=== PATIENT | male | born 1935 | race Caucasian/White ===

== ENCOUNTER 2017-08-21 10:21 | Emergency (ER) | payer OTHER, MEDICAID ==
[~2017-08-21] VITALS: Ht 170.2 cm; Wt 83.9 kg
[2017-08-21] MEDS ORDERED: GLIPIZIDE 10 MG10 MG PO (10:37)
[2017-08-21] MEDS ORDERED: LISINOPRIL10 MG PO ×2 (10:37→10:38)
[2017-08-21] MEDS ORDERED: JANUVIA100 MG PO (10:38)
[2017-08-21] MEDS ORDERED: ST. JOSEPH ASPI81 MG PO (10:38)
[2017-08-21] MEDS ORDERED: ATORVASTATIN CA40 MG PO (10:38)
[2017-08-21] MEDS ORDERED: METFORMIN HCL500 MG PO (10:38)
[2017-08-21] MEDS ORDERED: TOPROL XL50 MG PO (10:39)
[2017-08-21 10:55] LABS: HEMATOCRIT 46.9 % (42.0-52.0); HEMOGLOBIN 15.8 gm/dL (14.0-18.0); MCH 31.2 pg (26.0-34.0); MCHC 33.6 g/dL (28.0-37.0); MCV 92.9 fL (80.0-100.0); MPV 7.1 fl. (7.2-11.1); NUCLEATED RBCS 0 /100WBC; PLATELET COUNT* 193 thou/uL (150-400); RBC 5.05 mil/uL (4.50-6.00); RDW-CV 12.6 % (10.5-14.5); WBC 12.2 thou/uL (4.0-11.0)
[2017-08-21 11:02] LABS: URINE BILIRUBIN NEGATIVE (Negative); URINE BLOOD 1+ (Negative); URINE CLARITY CLEAR; URINE COLOR YELLOW; URINE GLUCOSE-RANDOM 3+ (Negative); URINE KETONES NEGATIVE (Negative); URINE LEUKOCYTES-REFLEX NEGATIVE (Negative); URINE NITRITE-REFLEX NEGATIVE (Negative); URINE PROTEIN NEGATIVE (Negative); URINE SPECIFIC GRAVITY <= 1.005 (1.005-1.030); URINE UROBILINOGEN 0.2 E.U./dl (0.2-1.0)
[2017-08-21 11:03] LABS: CALCIUM 9.5 mg/dL (8.5-10.1); CREATININE 1.1 mg/dL (0.6-1.3); POTASSIUM 4.1 mmol/L (3.5-5.1)
[2017-08-21 11:07] LABS: ALBUMIN 4.4 g/dL (3.4-5.0); TOTAL BILIRUBIN 0.7 mg/dL (<0.1-1.0); TOTAL PROTEIN 8.2 g/dL (6.4-8.2)
[2017-08-21 11:10] LABS: BACTERIA-REFLEX 1-9 Few /HPF (None Seen); CASTS None Seen /LPF (None Seen); CRYSTALS None Seen /LPF (None Seen); MUCUS 0-3 Light strn/LPF (None Seen); SQUAMOUS 0-3 Few /LPF (0-3); URINE RBC 3-10 Few /HPF (0-2); URINE WBC-REFLEX 0-5 Rare /HPF (0-5)
[2017-08-21 11:46] LABS: ABSOLUTE LYMPHOCYTES 1.1 thou/uL (0.8-5.3); ABSOLUTE MONOCYTES 0.9 thou/uL (0.0-1.2); ABSOLUTE NEUTROPHILS 10.2 thou/uL (1.6-8.1)
[2017-08-21 11:47] LABS: PLATELET ESTIMATE ADEQUATE
[2017-08-21] MEDS ORDERED: BACTRIM DS TAB1 EACH PO (12:48)
[2017-08-21 13:04] VITALS: BP 102/73
[2018-04-18] MEDS ORDERED: PLAVIX 75 MG TA75 M1 PO (10:17)
[2018-04-18] MEDS ORDERED: IMDUR 30 MG TAB30 M1 PO (10:22)
[2018-04-18] MEDS ORDERED: JANUVIA100 MG PO (10:25)
[2018-04-18] MEDS ORDERED: ZANTAC 150MG T150 MG PO (10:26)
[2018-04-18] MEDS ORDERED: TOPROL XL100 MG PO (13:52)
[2018-04-18] MEDS ORDERED: IMDUR 60 MG TAB60 M1 PO (13:52)
== END 2017-08-21 13:06 | disposition home or self-care (01) ==
LOC: M.ERS 10:21
PROVIDERS: Physician Assistant
DX: R33.9 Retention of urine, unspecified (principal); N42.89 Other specified disorders of prostate; E11.9 Type 2 diabetes mellitus without complications; I10 Essential (primary) hypertension; E78.00 Pure hypercholesterolemia, unspecified

== ENCOUNTER 2017-08-24 09:30 | Emergency (ER) | payer OTHER, MEDICAID ==
[~2017-08-24] VITALS: Ht 160 cm; Wt 82.6 kg
[~2017-08-24 09:30] MED LIST: ATORVASTATIN CA40 MG PO; BACTRIM DS TAB1 EACH PO; GLIPIZIDE 10 MG10 MG PO; JANUVIA100 MG PO; LISINOPRIL10 MG PO; METFORMIN HCL500 MG PO; ST. JOSEPH ASPI81 MG PO; TOPROL XL50 MG PO
[2017-08-24 09:35] VITALS: BP 145/54
[2018-04-18] MEDS ORDERED: PLAVIX 75 MG TA75 M1 PO (10:17)
[2018-04-18] MEDS ORDERED: IMDUR 30 MG TAB30 M1 PO (10:22)
[2018-04-18] MEDS ORDERED: JANUVIA100 MG PO (10:25)
[2018-04-18] MEDS ORDERED: ZANTAC 150MG T150 MG PO (10:26)
[2018-04-18] MEDS ORDERED: TOPROL XL100 MG PO (13:52)
[2018-04-18] MEDS ORDERED: IMDUR 60 MG TAB60 M1 PO (13:52)
== END 2017-08-24 10:19 | disposition home or self-care (01) ==
LOC: M.ERS 09:30
DX: T83.098A Other mechanical complication of other urinary catheter, initial encounter (principal); E11.9 Type 2 diabetes mellitus without complications; I10 Essential (primary) hypertension; E78.00 Pure hypercholesterolemia, unspecified; Y84.9 Medical procedure, unspecified as the cause of abnormal reaction of the patient, or of later complication, without mention of misadventure at the time of the procedure; Y92.89 Other specified places as the place of occurrence of the external cause

== ENCOUNTER 2017-09-07 13:36 | Emergency (ER) | payer OTHER, MEDICAID ==
[~2017-09-07] VITALS: Ht 177.8 cm; Wt 68.0 kg
[2017-09-07 13:50] VITALS: BP 119/48
[2018-04-18] MEDS ORDERED: PLAVIX 75 MG TA75 M1 PO (10:17)
[2018-04-18] MEDS ORDERED: IMDUR 30 MG TAB30 M1 PO (10:22)
[2018-04-18] MEDS ORDERED: JANUVIA100 MG PO (10:25)
[2018-04-18] MEDS ORDERED: ZANTAC 150MG T150 MG PO (10:26)
[2018-04-18] MEDS ORDERED: TOPROL XL100 MG PO (13:52)
[2018-04-18] MEDS ORDERED: IMDUR 60 MG TAB60 M1 PO (13:52)
== END 2017-09-07 15:05 | disposition home or self-care (01) ==
LOC: M.ERS 13:36
DX: Z46.6 Encounter for fitting and adjustment of urinary device (principal); E11.9 Type 2 diabetes mellitus without complications; I10 Essential (primary) hypertension; E78.00 Pure hypercholesterolemia, unspecified

== ENCOUNTER 2017-11-28 11:46 | Outpatient (CLI) | payer OTHER, MEDICAID ==
[~2017-11-28] VITALS: Ht 157.5 cm; Wt 79.4 kg
[2017-11-28] VITALS (9 sets, daily range): BP systolic 96–129; BP diastolic 51–73
[2017-11-28 12:40] LABS: HEMATOCRIT 42.9 % (42.0-52.0); HEMOGLOBIN 14.7 gm/dL (14.0-18.0); MCH 31.6 pg (26.0-34.0); MCHC 34.3 g/dL (28.0-37.0); MCV 92.4 fL (80.0-100.0); MPV 6.7 fl. (7.2-11.1); RBC 4.65 mil/uL (4.50-6.00); RDW-CV 13.1 % (10.5-14.5); WBC 5.7 thou/uL (4.0-11.0)
[2017-11-28 12:50] LABS: ANION GAP 8 mmol/L (7-16); BUN 11 mg/dL (7-18); CALCIUM 9.1 mg/dL (8.5-10.1); CHLORIDE 99 mmol/L (98-107); CO2 30 mmol/L (21-32); CREATININE 0.8 mg/dL (0.6-1.3); GLUCOSE 181 mg/dL (70-99); POTASSIUM 3.8 mmol/L (3.5-5.1); SODIUM 137 mmol/L (136-145)
[2017-11-28 12:52] LABS: PROTIME 9.9 Seconds (9.20-11.50)
[2017-11-28 12:55] LABS: ALBUMIN 4.1 g/dL (3.4-5.0); ALKALINE PHOSPHATASE 64 U/L (46-116); CHOLESTEROL 106 mg/dL (<200); HDL CHOLESTEROL 55 mg/dL (>40); LDL CHOLESTEROL 28 mg/dL (<100); SGOT 15 U/L (15-37); SGPT 19 U/L (30-65); TC:HDL 1.9 Ratio (Not establshd); TOTAL BILIRUBIN 0.4 mg/dL (<0.1-1.0); TOTAL PROTEIN 7.9 g/dL (6.4-8.2); TRIGLYCERIDE 119 mg/dL (<150); VLDL 24 mg/dL (<40)
[2017-11-28] MEDS ORDERED: PROSCAR 5MG TABL5 MG PO (12:57)
[2017-11-28] MEDS ORDERED: VENTOLIN HFA 1818 GM INH (12:57)
[2017-11-28] MEDS ORDERED: FLOMAX0.4 MG PO (12:58)
[2017-11-28] MEDS ORDERED: GLUCOTROL5 MG PO (12:58)
[2017-11-28] MEDS ORDERED: COZAAR 25 MG TA25 M1 PO (12:58)
[2017-11-28] MEDS ORDERED: NITROGLYCERIN0.4 MG SUBLING (12:59)
[2017-11-28] MEDS ORDERED: MAGNESIUM CITR100 MG PO (13:01)
[2017-11-28 13:03] LABS: SERUM ASSESSMENT Clear
--- NOTE | 2017-11-28 16:38 | EKG ---
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: : 1935 Requested By: Jules Carvalho Order Number: [id number] Niyah MD: Jules Carvalho Measurements Intervals [place] Rate: 70 P: 22 [place]: 168 QRS: 46 QRSD: 83 T: 54 QT: 390 QTc: 421 Interpretive Statements Sinus rhythm Baseline wander in lead(s) I,III,aVL,aVF,V3,V6 No previous ECG available for comparison Electronically Signed On 11-28-2017 16:37:59 CDT by Jules Carvalho [email or web address] <ELECTRONICALLY SIGNED> By: Jules Carvalho MD, [facility] 11/28/17 1637 1258 1258 Jules Carvalho MD, [facility] /EPI
--- NOTE | 2017-12-01 11:03 | CARD ---
[address] [address] CARDIAC CATH REPORT Name: RON ABBASI Shila Room: [facility] HAO Kaye#: [id number] Admission: 11/28/17 Attend Phys: Jules Carvalho MD, Discharge: 11/28/17 Date of : 37 Report #: [id number] THIS REPORT FOR: //name// APPROVED REPORT Study performed: 11/28/2017 12:55:24 Patient Details Patient Status: Out-Patient Room #: The patient is a 82 year-old male Event Personnel Jules Carvalho Works Manager, Celine Jin RN RN, Jasmin Rosen RTR Monitor, Asa Allison (R) Scrub Procedures Performed Art Access - R radial artery Left Heart Cath w/LT VGram [id number] LHCLV Hemostasis with Hemoband Indication Dyspnea, Chest pain Risk Factors Hypercholesterolemia, Hypertension Procedure Narrative The patient was brought electively to the Cardiac Catheterization Laboratory and was prepped and draped in a sterile manner. The right wrist was infiltrated with 1% Lidocaine subcutaneous anesthesia. A Slender Glidesheath sheath was inserted into the right radial artery. Coronary angiography was performed using coronary diagnostic catheters. The right coronary system was accessed and visualized with a JR4 5fr catheter. The left coronary system was accessed and visualized with a JL 3.5 5fr catheter. The left ventricle was accessed and visualized with a PC: Angled Pig 5fr catheter. Left ventricular/Aortic Valve gradient assessed via catheter pullback. The patient tolerated the procedure well and there were no complications associated with the procedure. There was no hematoma. Intraoperative Conscious Sedation Sedation start time: 14:04 Case end Time: 14:34 Fentanyl 25 mcg Versed 1 [place] [address] CARDIAC CATH REPORT Name: ELROYRON Room: [facility]#: [id number] Admission: 11/28/17 Attend Phys: Jules Carvalho MD, Discharge: 11/28/17 Date of : 39 Report #: [id number] Fluoro Time: 10.1 minutes Dose: DAP 80203 cGycm2 783.65 mGy Contrast Type and Amount: Visipaque 130 ml Coronary Angiography The patient's coronary anatomy is right dominant. Diagnostic Cath Left Main 0% narrowing LAD 50 Percent mid vessel narrowing Circumflex 50 Percent proximal circumflex proximal narrowing with 40% narrowing of the midportion of the first marginal branch Right Coronary Dominant vessel with 40% proximal and 30% mid vessel narrowing Left Ventriculography The left ventricle is normal in size with normal contractility. The left ventricular ejection fraction is estimated to be 65%. Left ventricular wall motion abnormalities are not present. There is no mitral insufficiency. Hemodynamics The aortic pressure is 111/51 mmHg with a mean of 75 mmHg. The left ventricular pressure is 130/5 mmHg with a mean of mmHg. The left ventricular end diastolic pressure is 11 mmHg. Conclusion #1 moderate coronary artery disease characterized by the following: A 50% mid LAD narrowing B 50% proximal circumflex narrowing with 40% narrowing of the midportion of the first marginal branch C large dominant right coronary artery with 40% proximal and 30% mid vessel narrowing #2 normal left ventricular systolic function, estimate ejection fraction being 65% #3 normal left-sided hemodynamic study. Recommendations Cardiac Risk Reduction Program Aggressive [place] [address] CARDIAC CATH REPORT Name: RON ABBASI [id number] Admission: 11/28/17 Attend Phys: Jules Carvalho MD, Discharge: 11/28/17 Date of : 37 Report #: [id number] Diagnostic Cath Approved by: Jules Carvalho MD Date/Time: 12/01/17 1102 hrs. <ELECTRONICALLY SIGNED> By: Jules Carvalho MD, FACC 12/01/171102 02 02Jules Carvalho MD, FACC /INF
[2018-04-18] MEDS ORDERED: PLAVIX 75 MG TA75 M1 PO (10:17)
[2018-04-18] MEDS ORDERED: IMDUR 30 MG TAB30 M1 PO (10:22)
[2018-04-18] MEDS ORDERED: JANUVIA100 MG PO (10:25)
[2018-04-18] MEDS ORDERED: ZANTAC 150MG T150 MG PO (10:26)
[2018-04-18] MEDS ORDERED: IMDUR 60 MG TAB60 M1 PO (13:52)
[2018-04-18] MEDS ORDERED: TOPROL XL100 MG PO (13:52)
== END 2017-11-28 16:37 | disposition home or self-care (01) ==
LOC: M.CL 11:46 → M.TBA-CV 11:46 → M.CL 13:00 → M.TBA-CV 14:51 → M.CL 16:37
PROVIDERS: Internal Medicine
DX: I25.10 Atherosclerotic heart disease of native coronary artery without angina pectoris (principal); I10 Essential (primary) hypertension; E78.00 Pure hypercholesterolemia, unspecified; E11.9 Type 2 diabetes mellitus without complications; Z87.448 Personal history of other diseases of urinary system; Z79.82 Long term (current) use of aspirin; Z79.899 Other long term (current) drug therapy

== ENCOUNTER 2018-01-09 08:45 | Emergency (ER) | payer OTHER, MEDICAID ==
[~2018-01-09] VITALS: Ht 157.5 cm; Wt 81.7 kg
[~2018-01-09 08:45] MED LIST changes: +COZAAR 25 MG TA25 M1 PO; +FLOMAX0.4 MG PO; +GLUCOTROL5 MG PO; +MAGNESIUM CITR100 MG PO; +NITROGLYCERIN0.4 MG SUBLING; +PROSCAR 5MG TABL5 MG PO; +VENTOLIN HFA 1818 GM INH
[2018-01-09 09:08] LABS: URINE BILIRUBIN NEGATIVE (Negative); URINE BLOOD 2+ (Negative); URINE CLARITY CLEAR; URINE COLOR YELLOW; URINE GLUCOSE-RANDOM TRACE (Negative); URINE KETONES NEGATIVE (Negative); URINE LEUKOCYTES-REFLEX NEGATIVE (Negative); URINE NITRITE-REFLEX NEGATIVE (Negative); URINE PROTEIN NEGATIVE (Negative); URINE SPECIFIC GRAVITY <= 1.005 (1.005-1.030); URINE UROBILINOGEN 0.2 E.U./dl (0.2-1.0)
[2018-01-09 09:15] LABS: BACTERIA-REFLEX 1-9 Few /HPF (None Seen); CASTS None Seen /LPF (None Seen); CRYSTALS None Seen /LPF (None Seen); MUCUS 0-3 Light strn/LPF (None Seen); SQUAMOUS 0-3 Few /LPF (0-3); URINE RBC 3-10 Few /HPF (0-2); URINE WBC-REFLEX 0-5 Rare /HPF (0-5)
[2018-01-09 10:02] LABS: CALCIUM 9.8 mg/dL (8.5-10.1); CREATININE 0.8 mg/dL (0.6-1.3)
[2018-01-09] MEDS ORDERED: KEFLEX500 M1 PO (11:17)
[2018-01-09 11:32] VITALS: BP 125/58
[2018-04-18] MEDS ORDERED: PLAVIX 75 MG TA75 M1 PO (10:17)
[2018-04-18] MEDS ORDERED: IMDUR 30 MG TAB30 M1 PO (10:22)
[2018-04-18] MEDS ORDERED: JANUVIA100 MG PO (10:25)
[2018-04-18] MEDS ORDERED: ZANTAC 150MG T150 MG PO (10:26)
[2018-04-18] MEDS ORDERED: IMDUR 60 MG TAB60 M1 PO (13:52)
[2018-04-18] MEDS ORDERED: TOPROL XL100 MG PO (13:52)
== END 2018-01-09 11:34 | disposition home or self-care (01) ==
LOC: M.ERS 08:45
PROVIDERS: Emergency Medicine Emergency Medical Services
DX: R33.9 Retention of urine, unspecified (principal); E11.9 Type 2 diabetes mellitus without complications; I10 Essential (primary) hypertension; E78.00 Pure hypercholesterolemia, unspecified

== ENCOUNTER 2018-02-12 07:42 | Observation (INO) | payer OTHER, MEDICAID ==
[2018-02-12] VITALS (14 sets, daily range): BP systolic 124–148; BP diastolic 55–71
[~2018-02-12] VITALS: Ht 162.6 cm; Wt 79.4 kg
--- NOTE | ~2018-02-12 | EKG ---
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
--- NOTE | ~2018-02-12 | H ---
[address] [address] HISTORY AND PHYSICAL Name: RON ABBASI Room: [address] [place] Kaye#: [id number] Admission: 02/12/18 Attend Phys: Jlues Carvalho MD, Discharge: 02/13/18 Date of : 37 Report #: [id number] THIS REPORT FOR: //name// Please refer to the History and Physical performed in the physician's office. By: [facility]0Medical Records Staff MELQUIADES /EDNA
[~2018-02-12 07:42] MED LIST changes: +KEFLEX500 M1 PO
[2018-02-12 08:20] LABS: HEMATOCRIT 40.7 % (42.0-52.0); HEMOGLOBIN 13.6 gm/dL (14.0-18.0); MCH 31.1 pg (26.0-34.0); MCHC 33.3 g/dL (28.0-37.0); MCV 93.4 fL (80.0-100.0); MPV 6.9 fl. (7.2-11.1); RBC 4.36 mil/uL (4.50-6.00); RDW-CV 12.8 % (10.5-14.5); WBC 5.2 thou/uL (4.0-11.0)
[2018-02-12 08:31] LABS: APTT 25.4 Seconds (25.0-31.3); INR 1.1; PROTIME 10.5 Seconds (9.20-11.50)
[2018-02-12 08:36] LABS: ANION GAP 6 mmol/L (7-16); BUN 10 mg/dL (7-18); CALCIUM 8.4 mg/dL (8.5-10.1); CHLORIDE 101 mmol/L (98-107); CO2 28 mmol/L (21-32); CREATININE 0.9 mg/dL (0.6-1.3); GLUCOSE 234 mg/dL (70-99); POTASSIUM 3.8 mmol/L (3.5-5.1); SODIUM 135 mmol/L (136-145)
[2018-02-12 08:42] LABS: ALBUMIN 3.6 g/dL (3.4-5.0); ALKALINE PHOSPHATASE 55 U/L (46-116); SGOT 14 U/L (15-37); SGPT 20 U/L (30-65); TOTAL BILIRUBIN 0.7 mg/dL (<0.1-1.0); TOTAL PROTEIN 7.1 g/dL (6.4-8.2)
[2018-02-12 09:48] LABS: CHOLESTEROL 108 mg/dL (<200); HDL CHOLESTEROL 55 mg/dL (>40); LDL CHOLESTEROL 31 mg/dL (<100); TRIGLYCERIDE 114 mg/dL (<150); VLDL 23 mg/dL (<40)
[2018-02-12 09:51] LABS: SERUM ASSESSMENT Clear
--- NOTE | 2018-02-12 17:30 | EKG ---
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
[2018-02-13] VITALS: BP 137/84
[2018-02-13 04:43] VITALS: BP 123/81
[2018-02-13 05:47] LABS: HEMATOCRIT 36.7 % (42.0-52.0); HEMOGLOBIN 12.4 gm/dL (14.0-18.0); MCH 31.9 pg (26.0-34.0); MCHC 33.8 g/dL (28.0-37.0); MCV 94.3 fL (80.0-100.0); MPV 7.4 fl. (7.2-11.1); RBC 3.9 mil/uL (4.50-6.00); RDW-CV 12.9 % (10.5-14.5)
[2018-02-13 06:07] LABS: ALBUMIN 3.3 g/dL (3.4-5.0); ALKALINE PHOSPHATASE 49 U/L (46-116); BUN 9 mg/dL (7-18); CALCIUM 8.1 mg/dL (8.5-10.1); CHLORIDE 105 mmol/L (98-107); CREATININE 0.7 mg/dL (0.6-1.3); GLUCOSE 219 mg/dL (70-99); POTASSIUM 4.2 mmol/L (3.5-5.1); SGOT 15 U/L (15-37); SGPT 16 U/L (30-65); SODIUM 139 mmol/L (136-145); TOTAL BILIRUBIN 0.8 mg/dL (<0.1-1.0); TOTAL PROTEIN 6.1 g/dL (6.4-8.2); TROPONIN-I LEVEL <0.06 ng/mL (<0.06)
[2018-02-13 06:22] LABS: ANION GAP 12 mmol/L (7-16); CO2 22 mmol/L (21-32)
[2018-02-13 07:30] VITALS: BP 133/63
[2018-02-13 10:00] VITALS: BP 134/71
[2018-02-13] MEDS ORDERED: BRILINTA90 MG PO (12:34)
--- NOTE | 2018-02-13 16:11 | D ---
[address] [address] DISCHARGE SUMMARY Name: GISSELLE ABBASIZHAO Fuchs Room: [address] [place] Kaye#: [id number] Admission: 02/12/18 Attend Phys: Jules Carvalho MD, Discharge: 02/13/18 Date of : 37 Report #: [id number] THIS REPORT FOR: //name// CC: Jules Carvalho Kavya Thompson DATE OF SERVICE: 02/13/2018 FINAL DISCHARGE DIAGNOSES: 1. Coronary artery disease. 2. Status post stenting of the mid left anterior descending and angioplasty of a prominent diagonal with atherectomy of the mid left anterior descending prior to stenting. 3. Hypertension. 4. Hyperlipoproteinemia. 5. Aortic stenosis. 6. History of urinary retention. PROCEDURES: 02/12/2018-left heart catheterization, selective coronary arteriography, and percutaneous coronary intervention with deployment of drug-eluting stent in the mid LAD after atherectomy with angioplasty of a prominent diagonal branch. The patient is a pleasant 82-year-old male with recurrent episodes of chest discomfort compatible with angina following a pattern of increased frequency and severity. He underwent catheterization 3 months ago and a moderately severe mid LAD lesion was noted and was treated medically. He continued to have angina despite medical therapy unless re-catheterization was performed on 02/12/2018, which revealed 80-90% mid LAD stenosis with involvement of the takeoff of a prominent diagonal. I performed atherectomy followed by stenting of the mid LAD with angioplasty of the takeoff of the first diagonal with 0% residual LAD narrowing and 10% residual diagonal narrowing and MICAELA 3 flow to both distal circulations. The patient did well post-procedurally and ambulated in the hallways without difficulty with good hemostasis at the right femoral site of catheterization. Laboratory on 02/13, revealed sodium 139, potassium 4.2, BUN 9, creatinine 0.7. Hemoglobin 12.4, white blood cell count 6000, and platelets 162,000. Troponin less than 0.06. The patient was discharged to home on the following medications: Aspirin 81 mg daily, atorvastatin 40 mg daily, cephalexin 500 mg q.i.d., finasteride 5 mg daily, glipizide 10 mg daily and 5 mg before breakfast, losartan 25 mg daily, magnesium 250 mg daily, metformin 500 mg b.i.d. to be resumed on 02/15/2018, metoprolol succinate 25 mg daily, tamsulosin 0.4 mg daily, ticagrelor 90 [place] [address] DISCHARGE SUMMARY Name: RON ABBASI Room: [address] Clay MMarcosR.#: [id number] Admission: 02/12/18 Attend Phys: Jules Carvalho MD, Discharge: 02/13/18 Date of : 37 Report #: [id number] b.i.d., albuterol 2 puffs q.6 hours p.r.n. and p.r.n. sublingual nitroglycerin. The patient is scheduled to return to see me in the office on 02/20/2018, at 1420 hours. Thus, the patient is discharged to home in stable condition on the aforementioned medications with followup as iterated above. <ELECTRONICALLY SIGNED> By: Jules Carvalho MD, FACC 02/13/18 1611 1140 1534Jules Carvalho MD, FAC /nt
--- NOTE | 2018-02-13 17:37 | EKG ---
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
--- NOTE | 2018-02-21 17:07 | CARD ---
[address] [address] CARDIAC CATH REPORT Name: RON ABBASI Shila Room: [address] [place] Kaye#: [id number] Admission: 02/12/18 Attend Phys: Jules Carvalho MD, Discharge: 02/13/18 Date of : 37 Report #: [id number] THIS REPORT FOR: //name// APPROVED REPORT Study performed: 02/12/2018 08:06:33 Patient Details Patient Status: Out-Patient Room #: 208 The patient is a 82 year-old male Event Personnel Jules Carvalho Debt Counselor, Reyna Hardwick RN Furniture Builder, Mika Hunt Haley, Jessica RTR Monitor, Chyna Garland Monitor Procedures Performed Art Access - R femoral artery* Left Heart Cath w/or w/o Coronaries [id number] [facility] JAVI Place w/wo Plasty Single LAD [id number] PTCA Single Vessel DIAG [id number] PCISINGLE , Selective Right and Left Coronary Angiography Indication Unstable angina Risk Factors Hypercholesterolemia, Hypertension Procedure Narrative The patient was brought electively to the Cardiac Catheterization Laboratory and was prepped and draped in a sterile manner. The right femoral was infiltrated with 2% Lidocaine subcutaneous anesthesia. A [place] 6 FR sheath was inserted into the right femoral artery. Coronary angiography was performed using coronary diagnostic catheters. The right coronary system was accessed and visualized with a Diagnostic 6fr JR 4 catheter. The left coronary system was accessed and visualized with a Diagnostic 6fr JL 4 catheter. The left ventricle was accessed and visualized with a Diagnostic 6fr Straight Pigtail catheter. Left ventricular/Aortic Valve gradient assessed via catheter pullback. Pre-demployment femoral angiogram was performed . Closure device was deployed with a 6 Fr Angioseal STS 6Fr. The patient tolerated the procedure well and there were no complications associated with the procedure. There was no hematoma. Fluoro Time: 11.9 [place] [address] CARDIAC CATH REPORT Name: RON ABBASI Room: [address] M.R.#: [id number] Admission: 02/12/18 Attend Phys: Jules Carvalho MD, Discharge: 02/13/18 Date of : 37 Report #: [id number] Dose: DAP 1294 cGycm2 69.8 mGy Contrast Type and Amount: Visipaque 285 ml Coronary Angiography The patient's coronary anatomy is right dominant. Diagnostic Cath Left Main 0% narrowing LAD 30% proximal narrowing with 90% mid vessel narrowing involving the takeoff of a prominent diagonal branch Circumflex 40% proximal to 60% mid vessel narrowing Right Coronary Large dominant vessel with 50% proximal stenosis Left Ventriculography Left Ventriculography was not performed. IVUS Intravascular Ultrasound was performed on the mid left anterior descending artery segment vessel. IVUS Findings AngioSculpt PTCA 2.0X10mm Hemodynamics The aortic pressure is 121/56 mmHg with a mean of mmHg. The left ventricular pressure is 153/3 mmHg with a mean of mmHg. The left ventricular end diastolic pressure is 9 mmHg. Pullback from the left ventricle to the aorta revealed no gradient across the aortic valve. PCI Technique Lesion Anticoagulation was achieved with Angiomax. Percutaneous coronary intervention was performed on the mid left anterior descending artery segment. The lesion stenosis prior to intervention was 90% with MICAELA 3 flow. A 6FR XB 3.0 100CM Guide Catheter was used to engage the LCA ostium. A IG: ProwaterFlex 180CM Interventional Guidewire was used to cross the lesion. BALLOON DILATION A Balloon catheter AngioSculpt PTCA 2.0X10mm was inserted and inflated up to 10atm for 13seconds. Additional Inflation: 10.00atm for 10seconds. Additional Inflation: 17.00atm for 16seconds. 17 SOFIYA X 11 SECONDS 18 SOFIYA X 10 SECONDS 19 SOFIYA X 14 SECONDS STENT DEPLOYMENT A drug-eluting stent Xience Alpine RX 2.25X08 [place] [address] CARDIAC CATH REPORT Name: RON ABBASI Room: [address] M.RMarcos#: [id number] Admission: 02/12/18 Attend Phys: Jules Carvalho MD, Discharge: 02/13/18 Date of : 39 Report #: [id number] inflated up to 8atm for 10seconds. Final angiography reveals 0 % stenosis with MICAELA 3 flow. PCI Technique Lesion Percutaneous coronary intervention was performed on the mid left anterior descending artery segment. BALLOON DILATION A Balloon catheter AngioSculpt PTCA 2.0X10mm was inserted and inflated up to 10.00atm for 12seconds. Additional Inflation: 10.00atm for 10seconds. STENT DEPLOYMENT A drug-eluting stent Xience Alpine RX 2.25X08 was inserted and inflated up to 6.00atm for 7seconds. Additional Inflation: 7.00atm for 10seconds. PCI Technique Lesion 2 Percutaneous Coronary Intervention was performed on the first diagnonal branch segment. The lesion stenosis prior to intervention was 75% with MICAELA 3 flow. Balloon Dilation A Balloon catheter Trek RX 2.25 X 8 was inserted and inflated up to 12.00atm for 12seconds. Additional Inflation: 14.00atm for 10seconds. Final angiography reveals 10 % stenosis with MICAELA 3 flow. Conclusion #1 significant coronary artery disease characterized by the following: A 30% proximal with 90% mid vessel stenosis involving the takeoff of prominent diagonal branch B 40% proximal circumflex narrowing with 60% mid vessel narrowing C large dominant right coronary artery with 50% proximal narrowing #2 normal left-sided hemodynamics study #3 successful percutaneous [place] [address] CARDIAC CATH REPORT Name: RON ABBASI Room: [address] [place] Kaye#: [id number] Admission: 02/12/18 Attend Phys: Jules Carvalho MD, Discharge: 02/13/18 Date of : 39 Report #: [id number] atherotomy/atherectomy followed by stenting of the mid left anterior descending coronary artery with 0% residual narrowing and MICAELA-3 flow the distal vessel #4 successful percutaneous transluminal coronary angioplasty at the site of 75% first diagonal narrowing with 10% residual narrowing Recommendations Cardiac Risk Reduction Program Aggressive Medical Therapy Medications Administered Aspirin (any) Ticagrelor Diagnostic Cath Approved by: Jules Carvalho MD Date/Time: 02/21/2018 17:06:18 <ELECTRONICALLY SIGNED> By: Jules Carvalho MD, [facility] 02/21/18 1707 1707 1707Jules Carvalho MD, FAC /INF
[2018-04-18] MEDS ORDERED: PLAVIX 75 MG TA75 M1 PO (10:17)
[2018-04-18] MEDS ORDERED: IMDUR 30 MG TAB30 M1 PO (10:22)
[2018-04-18] MEDS ORDERED: JANUVIA100 MG PO (10:25)
[2018-04-18] MEDS ORDERED: ZANTAC 150MG T150 MG PO (10:26)
[2018-04-18] MEDS ORDERED: IMDUR 60 MG TAB60 M1 PO (13:52)
[2018-04-18] MEDS ORDERED: TOPROL XL100 MG PO (13:52)
== END 2018-02-13 13:46 | disposition home or self-care (01) ==
LOC: M.CL 07:42 → M.TBA-CV 10:40 → M.2W 11:15
PROVIDERS: ADMIT Internal Medicine
DX: I25.10 Atherosclerotic heart disease of native coronary artery without angina pectoris (principal); I10 Essential (primary) hypertension; E78.5 Hyperlipidemia, unspecified; I35.0 Nonrheumatic aortic (valve) stenosis

== ENCOUNTER 2018-02-26 11:24 | Emergency (ER) | payer OTHER, MEDICAID ==
[~2018-02-26] VITALS: Ht 162.6 cm; Wt 2.7 kg
[~2018-02-26 11:24] MED LIST changes: +BRILINTA90 MG PO
[2018-02-26 11:53] LABS: ABSOLUTE BASOPHILS 0.1 thou/uL (0.0-0.2); ABSOLUTE LYMPHOCYTES 0.9 thou/uL (0.8-5.3); ABSOLUTE MONOCYTES 0.4 thou/uL (0.0-1.2); ABSOLUTE NEUTROPHILS 4.2 thou/uL (1.6-8.1); BASOPHILS 1.2 %; EOSINOPHILS 0.9 %; HEMATOCRIT 36.9 % (42.0-52.0); HEMOGLOBIN 12.5 gm/dL (14.0-18.0); LYMPHOCYTES 16.1 %; MCH 31.4 pg (26.0-34.0); MCHC 33.9 g/dL (28.0-37.0); MCV 92.6 fL (80.0-100.0); MONOCYTES 7.9 %; MPV 6.6 fl. (7.2-11.1); NUCLEATED RBCS 0 /100WBC; PLATELET COUNT* 207 thou/uL (150-400); POLYS 73.9 %; RBC 3.98 mil/uL (4.50-6.00); WBC 5.7 thou/uL (4.0-11.0)
[2018-02-26 11:58] LABS: ANION GAP 13 mmol/L (7-16); BUN 10 mg/dL (7-18); CALCIUM 8.1 mg/dL (8.5-10.1); CHLORIDE 101 mmol/L (98-107); CO2 25 mmol/L (21-32); CREATININE 0.9 mg/dL (0.6-1.3); GLUCOSE 172 mg/dL (70-99); SODIUM 139 mmol/L (136-145)
[2018-02-26 12:06] LABS: PROTIME 10.2 Seconds (9.20-11.50)
[2018-02-26 12:09] LABS: ALBUMIN 3.5 g/dL (3.4-5.0); ALKALINE PHOSPHATASE 50 U/L (46-116); LIPASE 135 U/L (73-393); NT-PRO BRAIN NAT PEPTIDE 76 pg/mL (<300); SGOT 17 U/L (15-37); SGPT 20 U/L (30-65); TOTAL BILIRUBIN 0.6 mg/dL (<0.1-1.0); TOTAL PROTEIN 6.8 g/dL (6.4-8.2); TROPONIN-I LEVEL <0.06 ng/mL (<0.06)
[2018-02-26 13:10] VITALS: BP 118/55
--- NOTE | 2018-02-26 14:40 | EKG ---
[place] [address] ELECTROCARDIOGRAM REPORT Name: GREGORIO ABBASIROWAN Fuchs Room: [facility]#: [id number] Admission: 02/26/18 Attend Phys: Discharge: 02/26/18 Date of : 39 Report #: [id number] THIS REPORT FOR: //name// [facility] ED Test Date: 2018-02-26 Test Time: 11:30:03 Pat Name: RON ABBASI Department: Room: Gender: Business Control Manager: Gurpreet DOZIER : 1935 Requested By: Clayton Carrillo Order Number: [id number] MD: Antoine Famrer Measurements Intervals [place] Rate: 80 P: 16 [place]: 171 QRS: 37 QRSD: 86 T: 53 QT: 362 QTc: 418 Interpretive Statements Sinus rhythm Compared to ECG 02/13/2018 09:13:34 No significant changes Electronically Signed On 02-26-2018 14:40:50 CDT by Antoine Farmer [email or web address] <ELECTRONICALLY SIGNED> By: Antoine Farmer MD, [facility] 02/26/18 1440 1130 1130 Antoine Farmer MD, FAC /EPI
[2018-04-18] MEDS ORDERED: PLAVIX 75 MG TA75 M1 PO (10:17)
[2018-04-18] MEDS ORDERED: IMDUR 30 MG TAB30 M1 PO (10:22)
[2018-04-18] MEDS ORDERED: JANUVIA100 MG PO (10:25)
[2018-04-18] MEDS ORDERED: ZANTAC 150MG T150 MG PO (10:26)
[2018-04-18] MEDS ORDERED: TOPROL XL100 MG PO (13:52)
[2018-04-18] MEDS ORDERED: IMDUR 60 MG TAB60 M1 PO (13:52)
== END 2018-02-26 13:11 | disposition home or self-care (01) ==
LOC: M.ERS 11:24
PROVIDERS: Emergency Medicine
DX: R07.89 Other chest pain (principal); R30.0 Dysuria

== ENCOUNTER → 2018-03-19 | Outpatient (CLI) | payer OTHER, MEDICAID ==
[~2018-03-19] MED LIST changes: +AMOXICILLIN 50500 M1 PO; +AZITHROMYCIN 2250 MG PO; +BACTRIM DS TAB1 EAC1 PO; +IMDUR 30 MG TAB30 M1 PO; +IMDUR 60 MG TAB60 M1 PO; +NORCO 5-325 TA1 EACH PO; +PLAVIX 75 MG TA75 M1 PO; +RANEXA500 MG PO; +TOPROL XL100 MG PO; +ZANTAC 150MG T150 MG PO
--- NOTE | 2018-03-19 15:23 | 2DMMODE ---
[place] [address] 2 D/M-MODE ECHOCARDIOGRAM Name: RON ABBASI [id number] Admission: 03/19/18 Attend Phys: Nanda Gusman NP [place] Discharge: Date of : 39 Date of Service: 03/19/18 1523 Report #: [id number] THIS REPORT FOR: //name// APPROVED REPORT Study performed: 03/19/2018 14:38:49 EXAM: Comprehensive 2D, Doppler, and color-flow Echocardiogram Patient Location: Out-Patient Status: routine BSA: 1.85 HR: 77 bpm BP: 102/80 mmHg Other Information Study Quality: Good Indications Dyspnea 2D Dimensions LVEF(%): 76.05 (>50%) IVSd: 11.35 (7-11mm) LVOT Diam: 20.41 (18-24mm) LVDd: 40.39 mm PWd: 10.15 (7-11mm) Ascending Ao: 26.41 (22-36mm) LVDs: 22.50 (25-40mm) Aortic Root: 26.23 mm Fish's LVEF: 76.05 % Volumes Left Atrial Volume (Systole) LA ESV Index: 13.70 mL/m2 Aortic Valve AoV Peak Tom.: 3.41 m/s AO Peak Gr.: 46.38 mmHg LVOT Max P.03 mmHg AO Mean Gr.: 28.62 mmHg LVOT Mean P.08 mmHg LVOT Max V: 0.71 m/s AO V2 VTI: 78.13 cm LVOT Mean V: 0.48 m/s REBEKAH (VTI): 0.73 cm2 LVOT V1 VTI: 17.48 cm Mitral Valve E/A Ratio: 0.93 MV Decel. Time: 238.27 [place] [address] 2 D/M-MODE ECHOCARDIOGRAM Name: RON ABBASI Room: [facility]#: [id number] Admission: 03/19/18 Attend Phys: Nanda Gusman NP [place] Discharge: Date of : 39 Date of Service: 03/19/18 1523 Report #: [id number] MV E Max Tom.: 0.67 m/s MV PHT: 69.10 ms MVA (PHT): 3.18 cm2 TDI E/Lateral E': 8.38 E/Medial E': 8.38 Medial E' Tom.: 0.08 m/s Lateral E' Tom.: 0.08 m/s Pulmonary Valve PV Peak Tom.: 1.32 m/s PV Peak Gr.: 6.94 mmHg Left Ventricle The left ventricle is normal size. There is normal LV segmental wall motion. Mild concentric left ventricular hypertrophy. Left ventricular systolic function is normal. LVEF is >70%. Transmitral Doppler flow pattern suggests impaired LV relaxation. Right Ventricle The right ventricle is normal size. The right ventricular systolic function is normal. Atria The left atrium size is normal. The right atrium size is normal. Aortic Valve Aortic valve is calcified. Trace aortic regurgitation. Severe aortic stenosis. Mitral Valve The mitral valve is normal in structure. There is no mitral valve regurgitation noted. No evidence of mitral valve stenosis. Tricuspid Valve The tricuspid valve is normal in structure. There is no tricuspid valve regurgitation noted. Pulmonic Valve The pulmonary valve is normal in structure. There is no pulmonic valvular regurgitation. Great Vessels The aortic root is normal in size. IVC is normal in size and collapses with >50% [place] [address] 2 D/M-MODE ECHOCARDIOGRAM Name: RON ABBASI Room: [facility]#: [id number] Admission: 03/19/18 Attend Phys: Nanda Gusman NP [place] Discharge: Date of : 39 Date of Service: 03/19/18 1523 Report #: [id number] Pericardium There is no pericardial effusion. <Conclusion> The left ventricle is normal size. Mild concentric left ventricular hypertrophy. Left ventricular systolic function is normal. LVEF is >70%. Transmitral Doppler flow pattern suggests impaired LV relaxation. Aortic valve is calcified. Severe aortic stenosis. IVC is normal in size and collapses with >50% inspiration <ELECTRONICALLY SIGNED> By: Ivan Lord MD, FACC 03/19/18 1523 1523 1523 Ivan Lord MD, FACC /INF
--- NOTE | 2018-03-29 11:13 | PF ---
[address] [address] PULMONARY FUNCTION REPORT Name: ELROYRON Fuchs Room: [facility] MansoorMarcos#: [id number] Admission: 03/19/18 Attend Phys: Nanda Armendariz Discharge: Date of : 39 Report #: [id number] THIS REPORT FOR: //name// CC: Nanda Thompson REFERRING INDIVIDUAL: Nanda Eldridge, nurse practitioner. INTERPRETATION: Expiratory flow rate shows a reduction in the FEV1. The FEV1 is 1.18, which is 55% of the predicted value. Forced vital capacity 2.68, which is within the patient's normal range. The mid flows, specifically the [id number] is reduced at 0.37 with no improvement after inhaled bronchodilator. The lung volumes measured by body plethysmography were in the normal range. The diffusion capacity was mildly reduced. IMPRESSION: 1. Moderately severe obstructive airways disease without improvement in the expiratory flow rates after inhaled bronchodilator. 2. Normal lung volumes. 3. Mild reduction in diffusion capacity. <ELECTRONICALLY SIGNED> By: Marc Dickey MD 03/29/18 1113 1109 1231Alilene Dickey MD /nt
== END ==
LOC: M.PUL 12:10
DX: I65.23 Occlusion and stenosis of bilateral carotid arteries (principal); I73.9 Peripheral vascular disease, unspecified; R09.89 Other specified symptoms and signs involving the circulatory and respiratory systems; J44.9 Chronic obstructive pulmonary disease, unspecified; M79.604 Pain in right leg; M79.605 Pain in left leg; I25.10 Atherosclerotic heart disease of native coronary artery without angina pectoris; I35.0 Nonrheumatic aortic (valve) stenosis; E78.2 Mixed hyperlipidemia; I10 Essential (primary) hypertension

== ENCOUNTER 2018-03-21 11:04 | Observation (INO) | payer OTHER, MEDICAID ==
[~2018-03-21] VITALS: Ht 165.1 cm; Wt 80.7 kg
[~2018-03-21 11:04] MED LIST changes: -AMOXICILLIN 50500 M1 PO; -AZITHROMYCIN 2250 MG PO; -BACTRIM DS TAB1 EAC1 PO; -IMDUR 30 MG TAB30 M1 PO; -IMDUR 60 MG TAB60 M1 PO; -NORCO 5-325 TA1 EACH PO; -PLAVIX 75 MG TA75 M1 PO; -RANEXA500 MG PO; -TOPROL XL100 MG PO; -ZANTAC 150MG T150 MG PO
[2018-03-21 11:07] VITALS: BP 99/54
[2018-03-21 11:24] LABS: ABSOLUTE BASOPHILS 0.1 thou/uL (0.0-0.2); ABSOLUTE EOSINOPHILS 0.1 thou/uL (0.0-0.7); ABSOLUTE LYMPHOCYTES 1.6 thou/uL (0.8-5.3); ABSOLUTE MONOCYTES 0.6 thou/uL (0.0-1.2); ABSOLUTE NEUTROPHILS 3.4 thou/uL (1.6-8.1); HEMATOCRIT 40.2 % (42.0-52.0); HEMOGLOBIN 13.4 gm/dL (14.0-18.0); LYMPHOCYTES 27.8 %; MCH 31.5 pg (26.0-34.0); MCHC 33.4 g/dL (28.0-37.0); MCV 94.2 fL (80.0-100.0); MONOCYTES 10.1 %; MPV 7.1 fl. (7.2-11.1); NUCLEATED RBCS 0 /100WBC; PLATELET COUNT* 162 thou/uL (150-400); POLYS 58.1 %; RBC 4.27 mil/uL (4.50-6.00); RDW-CV 13.5 % (10.5-14.5); WBC 5.8 thou/uL (4.0-11.0)
[2018-03-21 11:29] LABS: ANION GAP 9 mmol/L (7-16); BUN 14 mg/dL (7-18); CALCIUM 8.6 mg/dL (8.5-10.1); CHLORIDE 101 mmol/L (98-107); CO2 27 mmol/L (21-32); CREATININE 1.1 mg/dL (0.6-1.3); GLUCOSE 155 mg/dL (70-99); POTASSIUM 4.1 mmol/L (3.5-5.1); SODIUM 137 mmol/L (136-145)
[2018-03-21 11:31] LABS: APTT 25.3 Seconds (25.0-31.3); PROTIME 10.5 Seconds (9.20-11.50)
[2018-03-21 11:46] LABS: ALBUMIN 3.6 g/dL (3.4-5.0); ALKALINE PHOSPHATASE 46 U/L (46-116); CK-MB MASS 1.4 ng/mL (<0.5-3.6); LIPASE 131 U/L (73-393); MAGNESIUM 1.6 mg/dL (1.8-2.4); NT-PRO BRAIN NAT PEPTIDE 81 pg/mL (<300); SGOT 17 U/L (15-37); SGPT 20 U/L (30-65); TOTAL BILIRUBIN 0.7 mg/dL (<0.1-1.0); TOTAL PROTEIN 6.9 g/dL (6.4-8.2); TROPONIN-I LEVEL <0.06 ng/mL (<0.06)
[2018-03-21 13:00] VITALS: BP 107/54
[2018-03-21 13:12] VITALS: BP 101/52
--- NOTE | 2018-03-21 15:47 | EKG ---
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
[2018-03-21 15:50] VITALS: BP 80/46
[2018-03-21 20:00] VITALS: BP 110/56
[2018-03-22] VITALS: BP 102/54
[2018-03-22 04:00] VITALS: BP 143/61
[2018-03-22 05:51] LABS: CALCIUM 8.3 mg/dL (8.5-10.1); CREATININE 0.8 mg/dL (0.6-1.3); MAGNESIUM 1.6 mg/dL (1.8-2.4)
[2018-03-22 07:52] VITALS: BP 137/74
--- NOTE | 2018-03-22 08:41 | CON ---
[address] [address] CONSULTATION Name: RON ABBASI Room: [address] IN ..#: [id number] Admission: 03/21/18 Attend Phys: Mika Malcolm MD Discharge: Date of : 39 Report #: [id number] THIS REPORT FOR: //name// CC: Nanda Carvalho MD [facility] Kavya Thompson INDICATION: Chest pain. HISTORY OF PRESENT ILLNESS: The patient is an 82-year-old gentleman with history of coronary artery disease, aortic valvular disease, hypertension, hyperlipidemia, and type 2 diabetes mellitus. The patient underwent percutaneous coronary intervention in February 2018, with a stent placed to the mid LAD and balloon angioplasty to an ostial diagonal lesion. The patient has continued to have some dyspnea on exertion and chest discomfort. More recently, he describes midsternal chest discomfort with any activity. He presented for cardiac rehabilitation today. After a short walk, he experienced significant dyspnea. He also noted some midsternal chest discomfort. He was taken to the emergency room for further evaluation. A 12-lead EKG showed sinus rhythm without significant ST or T-wave abnormality. Initial cardiac enzymes were unremarkable. At the time of my interview, the patient continued to note some mild 1/10 midsternal chest discomfort, but this was significantly better than when he was admitted. He is no longer having shortness of breath. PAST MEDICAL HISTORY: 1. Coronary artery disease with recent percutaneous coronary intervention as outlined above. 2. Aortic stenosis. 3. Hypertension. 4. Hyperlipidemia. 5. Type 2 diabetes mellitus. 6. COPD. 7. BPH. PAST SURGICAL HISTORY: Previous cataract surgery. SOCIAL HISTORY: The patient is a lifelong nonsmoker. He does not drink alcohol. FAMILY HISTORY: Noncontributory. PHYSICAL EXAMINATION: VITAL SIGNS: Blood pressure 80/46, pulse 72 and regular. GENERAL: This is a pleasant elderly gentleman who is in no distress. [place] [address] CONSULTATION Name: RON ABBASI Shila Room: [address]#: [id number] Admission: 03/21/18 Attend Phys: Mika Malcolm MD Discharge: Date of : 39 Report #: [id number] HEENT: Extraocular muscles are intact. Mucous membranes are moist. NECK: Shows no jugular venous distention. CHEST: Reveals diminished breath sounds without wheezes or rales. CARDIAC: Reveals regular rhythm with grade 3/6 systolic ejection murmur. ABDOMEN: Reveals normal bowel sounds. The abdomen is soft, nontender. EXTREMITIES: Shows no edema. Peripheral pulses are 2+ and palpable. SKIN: Warm and dry. LABORATORY DATA: Labs are reviewed. Sodium 137, potassium 4.1, chloride 101, bicarb 27, BUN 14, creatinine 1.1, serum glucose 155. LFTs within normal limits. Troponin is less than 0.06 on 2 separate occasions. NT-proBNP is 81. Fasting lipid profile from February shows a total cholesterol 108, triglycerides 114, HDL 55, LDL 31. White blood cell count 5.8, hemoglobin 13.4, platelet count 162,000. Chest x-ray shows no acute process. IMPRESSION AND RECOMMENDATIONS: 1. Chest pain consistent with progressive angina. At this point in time, I am going to adjust his medications in an effort to improve his antianginal regimen. I am adding Ranexa and increasing his beta karli. Stress test will be ordered tomorrow to see if there is significant underlying inducible ischemia. 2. Aortic stenosis. Echocardiogram obtained 2 days ago shows normal LV systolic function, mild LVH and severe aortic stenosis. The patient's symptoms may indicate progression of his aortic stenosis. We will follow clinically at this time. 3. Hyperlipidemia, presently well controlled on current statin agent. 4. Hypertension. The patient's blood pressure is actually low at this time. We will make adjustments to his medications and give fluid bolus at this time. 5. Type 2 diabetes mellitus, per primary physician. <ELECTRONICALLY SIGNED> By: Ivan Lord MD, FACC 03/22/18 0841 1625 1945Ivan Lord MD, FACC /nt
--- NOTE | 2018-03-22 10:55 | EKG ---
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 : 1935 Requested By: Edilson Gray Order Number: [id number] Niyah MD: Armaan Courtney Measurements Intervals [place] Rate: 69 P: VA: QRS: 44 QRSD: 78 T: 56 QT: 410 QTc: 440 Interpretive Statements Junctional rhythm septal infarct, old Compared to ECG 03/21/2018 11:05:51 Junctional rhythm now present Myocardial infarct finding now present Electronically Signed On 03-22-2018 10:55:03 CDT by Armaan Courtney [email or web address] <ELECTRONICALLY SIGNED> By: Armaan Courtney MD, [facility] 03/22/18 1055 1705 1705 Armaan Courtney MD, [facility] /EPI
--- NOTE | 2018-03-22 11:01 | EKG ---
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
[2018-03-22] MEDS ORDERED: RANEXA500 MG PO (11:11)
[2018-03-22 11:32] VITALS: BP 137/74
[2018-03-22 11:54] VITALS: BP 131/70
[2018-03-22 15:39] VITALS: BP 141/66
--- NOTE | 2018-03-22 16:35 | CARDNUC ---
[place] [address] CARDIAC NUCLEAR IMAGING REPORT Name: RON ABBASI Room: [address] IN [facility]#: [id number] Admission: 03/21/18 Attend Phys: Mika Malcolm, Discharge: Date of : 39 Date of Service: 03/22/18 1634 Report #: [id number] THIS REPORT FOR: //name// APPROVED REPORT Imaging Protocol: Rest Tc-99m/Stress Tc-99m 1 day Study performed: 03/21/2018 16:16:00 Indication: Chest pain, hypotension Patient Location: In-Patient Room #: 225 Stress Tech: Judie Mcclure Stress Nurse: Meera Lara RN NM Tech:TIESHA Martinez Ht: 5 ft 5 in Wt: 179 lbs BSA: 1.89 m2 BMI: 29.78 Medical History Medical History: cad, copd, hypotension, pci Medications: ticagelor, atorvastatin, ranolazine, metoprolol Allergies: nkda Cardiac Risk Factors: age, diabetes Previous Cardiac Procedures: pci Exercise History: Sedentary Meds Held (24 hrs): metorprolol Resting Data Rest SPECT myocardial perfusion imaging was performed in supine position 30 minutes following the intravenous injection of 11.2 mCi of Tc-99m Sestamibi. Time of rest injection: 0840 Date: 03/22/2018 Time of rest imagin The images were gated to evaluate regional wall motion and calculate left ventricular ejection fraction. Administration Route: IV Administration Site: Right AC Pharmacologic Stress Pharmacologic stress test was performed by injecting Regadenoson 0.4 mg IV push over 10-15 seconds immediately followed by the intravenous injection of 35.2 mCi of Tc-99m Sestamibi. Time of stress injection: 1005 [place] [address] CARDIAC NUCLEAR IMAGING REPORT Name: RON ABBASI Room: [address]#: [id number] Admission: 03/21/18 Attend Phys: Mika Malcolm, Discharge: Date of : 39 Date of Service: 03/22/18 1634 Report #: [id number] Administration Route: IV Administration Site: Right AC Gated Stress SPECT was performed 40 minutes after stress injection. The images were gated to evaluate regional wall motion and calculate left ventricular ejection fraction. Prone imaging was performed. Stress Test Details Stress Test: Pharmacologic stress testing performed using 0.4 mg of regadenoson per 5 mL given IV over 10 seconds. Reason for pharmacologic stress test: physical limitation. 60 mg caffeine given for nausea. HR Max Heart Rate (APMHR): 140 bpm Resting HR: 86 bpm Target HR (85% APMHR): 119 bpm Max HR Achieved: 115 bpm % of APMHR: 82 Recovery HR: 99 bpm BP Resting BP: 120/73 mmHg Recovery BP: 113/63 mmHg ECG Clinical The patient had no chest discomfort with Lexiscan infusion. He had some gastrointestinal symptoms felt to be related to medication. Nurse Comments pt hypotensive and nauseated, resolved with caffiene Stress ECG Conclusion The baseline 12-lead EKG shows sinus rhythm without significant ST or T wave abnormality. EKGs obtained during and post Lexiscan infusion show sinus rhythm with [address] segment depression. No stress-induced arrhythmias. Study Quality Study: Good Artifact: Mild Diaphragmatic artifact Study Data At rest, the left ventricular ejection fraction was 80%.. Post stress, the left ventricular ejection was 78%.. [place] [address] CARDIAC NUCLEAR IMAGING REPORT Name: RON ABBASI Room: [address]#: [id number] Admission: 03/21/18 Attend Phys: Mika Malcolm, Discharge: Date of : 39 Date of Service: 03/22/18 1634 Report #: [id number] TID = 0.98. Perfusion Myocardial perfusion images obtained in the supine position at rest and post Lexiscan stress show mild photopenia in the inferior wall consistent with diaphragmatic attenuation artifact. Post stress prone imaging shows uniform uptake of the radioisotope throughout the myocardium without defect. Wall Motion Normal left ventricular wall motion. Nuclear Conclusion ECG Findings: equivocal Clinical Findings: negative for ischemia Nuclear Findings: negative for ischemia Exercise Capacity: not assessed Left Ventricular Function: normal Risk Study: low Myocardial perfusion images show no defect to suggest infarct or ischemia. On gated studies left ventricular systolic function appears normal. This is a low risk study. <Conclusion> The baseline 12-lead EKG shows sinus rhythm without significant ST or T wave abnormality. EKGs obtained during and post Lexiscan infusion show sinus rhythm with [address] segment depression. No stress-induced arrhythmias. <ELECTRONICALLY SIGNED> By: Ivan Lord MD, FACC 03/22/18 1634 1634 1634 Ivan Lord MD, FACC /INF
[2018-04-18] MEDS ORDERED: PLAVIX 75 MG TA75 M1 PO (10:17)
[2018-04-18] MEDS ORDERED: IMDUR 30 MG TAB30 M1 PO (10:22)
[2018-04-18] MEDS ORDERED: JANUVIA100 MG PO (10:25)
[2018-04-18] MEDS ORDERED: ZANTAC 150MG T150 MG PO (10:26)
[2018-04-18] MEDS ORDERED: TOPROL XL100 MG PO (13:52)
[2018-04-18] MEDS ORDERED: IMDUR 60 MG TAB60 M1 PO (13:52)
== END 2018-03-22 17:52 | disposition home or self-care (01) ==
LOC: M.ERS 11:04 → M.2W 12:15 → M.TBA-ER 12:15 → M.2W 13:06
PROVIDERS: Family Medicine; ADMIT Internal Medicine
DX: I25.110 Atherosclerotic heart disease of native coronary artery with unstable angina pectoris (principal); I95.2 Hypotension due to drugs; I10 Essential (primary) hypertension; J44.9 Chronic obstructive pulmonary disease, unspecified; N40.0 Benign prostatic hyperplasia without lower urinary tract symptoms; I35.0 Nonrheumatic aortic (valve) stenosis; E11.9 Type 2 diabetes mellitus without complications; E78.5 Hyperlipidemia, unspecified; Z98.890 Other specified postprocedural states

== ENCOUNTER → 2018-04-18 | Outpatient (CLI) | payer OTHER, MEDICAID ==
[~2018-04-18] VITALS: Ht 101.6 cm; Wt 79.4 kg
[~2018-04-18] MED LIST changes: +AMOXICILLIN 50500 M1 PO; +AZITHROMYCIN 2250 MG PO; +BACTRIM DS TAB1 EAC1 PO; +IMDUR 30 MG TAB30 M1 PO; +IMDUR 60 MG TAB60 M1 PO; +NORCO 5-325 TA1 EACH PO; +PLAVIX 75 MG TA75 M1 PO; +RANEXA500 MG PO; +TOPROL XL100 MG PO; +ZANTAC 150MG T150 MG PO
[2018-04-18 10:09] VITALS: BP 150/62
[2018-04-18 10:39] LABS: HEMATOCRIT 43.8 % (42.0-52.0); HEMOGLOBIN 14.8 gm/dL (14.0-18.0); MCH 31.6 pg (26.0-34.0); MCHC 33.7 g/dL (28.0-37.0); MCV 93.8 fL (80.0-100.0); MPV 6.9 fl. (7.2-11.1); RBC 4.67 mil/uL (4.50-6.00); RDW-CV 13.4 % (10.5-14.5); WBC 5.1 thou/uL (4.0-11.0)
[2018-04-18 10:49] LABS: ANION GAP 7 mmol/L (7-16); BUN 8 mg/dL (7-18); CALCIUM 8.9 mg/dL (8.5-10.1); CHLORIDE 100 mmol/L (98-107); CO2 27 mmol/L (21-32); CREATININE 0.8 mg/dL (0.6-1.3); GLUCOSE 186 mg/dL (70-99); POTASSIUM 3.6 mmol/L (3.5-5.1); SODIUM 134 mmol/L (136-145)
[2018-04-18 10:50] LABS: PROTIME 10.1 Seconds (9.20-11.50)
[2018-04-18 10:53] LABS: ALBUMIN 4.3 g/dL (3.4-5.0); ALKALINE PHOSPHATASE 55 U/L (46-116); CHOLESTEROL 119 mg/dL (<200); HDL CHOLESTEROL 63 mg/dL (>40); LDL CHOLESTEROL 32 mg/dL (<100); SGOT 21 U/L (15-37); SGPT 29 U/L (30-65); TC:HDL 1.9 Ratio (Not establshd); TOTAL BILIRUBIN 0.9 mg/dL (<0.1-1.0); TOTAL PROTEIN 7.8 g/dL (6.4-8.2); TRIGLYCERIDE 121 mg/dL (<150); VLDL 24 mg/dL (<40)
[2018-04-18 10:54] LABS: SERUM ASSESSMENT Clear
[2018-04-18 12:00] VITALS: BP 11/49
[2018-04-18 12:17] VITALS: BP 113/31
--- NOTE | 2018-04-18 13:05 | EKG ---
[place] [address] ELECTROCARDIOGRAM REPORT Name: ELROYGREGORIORON Shila Room: 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
[2018-04-18 13:32] VITALS: BP 114/51
--- NOTE | 2018-04-26 19:19 | CARD ---
[address] [address] CARDIAC CATH REPORT Name: RON ABBASI [id number] Admission: 04/18/18 Attend Phys: Ivan Lord MD Discharge: Date of : 39 Report #: [id number] THIS REPORT FOR: //name// APPROVED REPORT Study performed: 04/18/2018 10:25:48 Patient Details Patient Status: Out-Patient Room #: The patient is a 82 year-old male Event Personnel Ivan Lord Reaming Machine Operator For Plastic, Leatha Childress RN Organizational Development Director, Chyna Garland Monitor, Mika Hunt Scrub, Shala Patel RTR Scrub Procedures Performed Art Access - R radial artery Left Heart Cath w/or w/o Coronaries [id number] [facility] , Selective Right and Left Coronary Angiography Procedure Narrative The patient was brought electively to the Cardiac Catheterization Laboratory and was prepped and draped in a sterile manner. The right wrist was infiltrated with 2% Lidocaine subcutaneous anesthesia. A Slender Glidesheath sheath was inserted into the right radial artery. Coronary angiography was performed using coronary diagnostic catheters. The right coronary system was accessed and visualized with a DCR: [place] 4.0 5fr catheter. The left coronary system was accessed and visualized with a DCR: [place] 4.0 5fr catheter. The left ventricle was accessed and visualized with a PC: [place] 5fr catheter. Left ventricular/Aortic Valve gradient assessed via catheter pullback. Intraoperative Conscious Sedation Sedation start time: 11:16 Case end Time: 11:40 Fentanyl 25 mcg Versed 1 mg Fluoro Time: 6.2 minutes Dose: DAP 86616 cGycm2 Contrast Type and Amount: Visipaque 70 ml Diagnostic [place] [address] CARDIAC CATH REPORT Name: RON ABBASI Room: [facility]#: [id number] Admission: 04/18/18 Attend Phys: Ivan Lord MD Discharge: Date of : 39 Report #: [id number] LAD 20% stenosis proximally with calcification in the proximal and midportion. The distal vessel appears free of significant disease. Diagonal 1 Normal. Circumflex 50% narrowed proximally with calcification. Minimal distal vessel free of significant disease. OM1 [place] branch with 40% tapering proximally. Right Coronary Diffusely plaqued with calcification in the proximal and midportion. There is a 50% stenosis proximally. Calcification noted as well and the distal portion. R PDA Plaqued and calcified with up to 10% narrowing. RPLV Normal. Ramus 70% proximal stenoses. Small in caliber. Left Ventriculography The left ventricle is normal in size with normal contractility. The left ventricular ejection fraction is estimated to be 65-70%. Left ventricular wall motion abnormalities are not present. Hemodynamics The aortic pressure is 102/51 mmHg with a mean of mmHg. The left ventricular pressure is 143/3 mmHg with a mean of mmHg. The left ventricular end diastolic pressure is 13 mmHg. There was no gradient across the aortic valve upon pullback. Pullback from the left ventricle to the aorta revealed no gradient across the aortic valve. Conclusion 1. Moderate nonocclusive coronary artery disease as outlined above. 2. Normal left ventricular systolic function. 3. Normal left ventricular end-diastolic pressure. Recommendations 1. Continue aggressive risk factor modification and medical management. <ELECTRONICALLY SIGNED> By: Ivan Lord MD, FACC 04/26/181917 17 17Michaeiron Lord MD, FACC /INF
== END | disposition home or self-care (01) ==
LOC: M.CL 09:57
PROVIDERS: Internal Medicine Cardiovascular Disease
DX: I25.10 Atherosclerotic heart disease of native coronary artery without angina pectoris (principal); I10 Essential (primary) hypertension; E11.9 Type 2 diabetes mellitus without complications; J44.9 Chronic obstructive pulmonary disease, unspecified; Z79.899 Other long term (current) drug therapy; Z79.01 Long term (current) use of anticoagulants; Z95.5 Presence of coronary angioplasty implant and graft; Z79.82 Long term (current) use of aspirin

== ENCOUNTER 2018-05-13 01:21 | Emergency (ER) | payer OTHER, MEDICAID ==
[~2018-05-13] VITALS: Ht 167.6 cm; Wt 78.5 kg
[~2018-05-13 01:21] MED LIST changes: -AMOXICILLIN 50500 M1 PO; -AZITHROMYCIN 2250 MG PO; -BACTRIM DS TAB1 EAC1 PO; -NORCO 5-325 TA1 EACH PO
[2018-05-13 03:04] LABS: URINE BILIRUBIN NEGATIVE (Negative); URINE BLOOD 3+ (Negative); URINE CLARITY CLEAR; URINE COLOR YELLOW; URINE GLUCOSE-RANDOM NEGATIVE (Negative); URINE KETONES NEGATIVE (Negative); URINE LEUKOCYTES-REFLEX NEGATIVE (Negative); URINE NITRITE-REFLEX NEGATIVE (Negative); URINE PROTEIN NEGATIVE (Negative); URINE UROBILINOGEN 0.2 E.U./dl (0.2-1.0)
[2018-05-13 03:14] LABS: CASTS None Seen /LPF (None Seen); CRYSTALS None Seen /LPF (None Seen); MUCUS 0-3 Light strn/LPF (None Seen); SQUAMOUS 0-3 Few /LPF (0-3); URINE RBC >20 Many /HPF (0-2); WBC CLUMPS Moderate (None Seen)
[2018-05-13] MEDS ORDERED: AZITHROMYCIN 2250 MG PO (03:51)
[2018-05-13] MEDS ORDERED: BACTRIM DS TAB1 EAC1 PO (03:51)
[2018-05-13] MEDS ORDERED: NORCO 5-325 TA1 EACH PO (04:11)
[2018-05-13] MEDS ORDERED: AMOXICILLIN 50500 M1 PO (04:11)
[2018-05-13 04:27] VITALS: BP 117/67
== END 2018-05-13 04:27 | disposition home or self-care (01) ==
LOC: M.ERS 01:21
PROVIDERS: Personal Emergency Response Attendant
DX: R33.9 Retention of urine, unspecified (principal); J06.9 Acute upper respiratory infection, unspecified; E11.9 Type 2 diabetes mellitus without complications; I25.10 Atherosclerotic heart disease of native coronary artery without angina pectoris; I10 Essential (primary) hypertension; N40.0 Benign prostatic hyperplasia without lower urinary tract symptoms; J44.9 Chronic obstructive pulmonary disease, unspecified

== ENCOUNTER → 2018-10-01 | Outpatient (CLI) | payer OTHER, MEDICAID ==
[~2018-10-01] MED LIST changes: +AMOXICILLIN 50500 M1 PO; +AZITHROMYCIN 2250 MG PO; +BACTRIM DS TAB1 EAC1 PO; +NORCO 5-325 TA1 EACH PO
--- NOTE | 2018-10-01 15:30 | 2DMMODE ---
[place] [address] 2 D/M-MODE ECHOCARDIOGRAM Name: RON ABBASI Room: [facility]#: [id number] Admission: 10/01/18 Attend Phys: Ivan Lord, Discharge: Date of : 39 Date of Service: 10/01/18 1529 Report #: [id number] THIS REPORT FOR: //name// APPROVED REPORT Study performed: 10/01/2018 09:06:27 EXAM: Comprehensive 2D, Doppler, and color-flow Echocardiogram Patient Location: Out-Patient BSA: 1.82 HR: 85 bpm BP: 102/80 mmHg Other Information Study Quality: Fair Indications Aortic Valve Disease TAVR (Bioprosthetic) 2D Dimensions IVSd: 9.69 (7-11mm) LVOT Diam: 20.08 (18-24mm) LVDd: 50.66 mm PWd: 11.51 (7-11mm) Ascending Ao: 24.33 (22-36mm) LVDs: 25.67 (25-40mm) Aortic Root: 21.24 mm Volumes Left Atrial Volume (Systole) LA ESV Index: 20.30 mL/m2 Aortic Valve AoV Peak Tom.: 1.67 m/s AO Peak Gr.: 11.11 mmHg LVOT Max P.52 mmHg AO Mean Gr.: 6.10 mmHg LVOT Mean P.37 mmHg LVOT Max V: 0.79 m/s AO V2 VTI: 32.88 cm LVOT Mean V: 0.55 m/s REBEKAH (VTI): 1.65 cm2 LVOT V1 VTI: 17.10 cm Mitral Valve E/A Ratio: 0.57 MV Decel. Time: 296.29 ms MV E Max Tom.: 0.44 m/s MV PHT: 85.92 [place] [address] 2 D/M-MODE ECHOCARDIOGRAM Name: RON ABBASI Room: [facility]#: [id number] Admission: 10/01/18 Attend Phys: Ivan Lord, Discharge: Date of : 39 Date of Service: 10/01/18 1529 Report #: [id number] MVA (PHT): 2.56 cm2 TDI E/Lateral E': 7.33 E/Medial E': 6.29 Medial E' Tom.: 0.07 m/s Lateral E' Tom.: 0.06 m/s Pulmonary Valve PV Peak Tom.: 0.78 m/s PV Peak Gr.: 2.42 mmHg Left Ventricle The left ventricle is normal size. There is normal LV segmental wall motion. There is normal left ventricular wall thickness. Left ventricular systolic function is normal. LVEF is 55-60%. Grade I - abnormal relaxation pattern. Right Ventricle The right ventricle is normal size. The right ventricular systolic function is normal. Atria The left atrium size is normal. The right atrium size is normal. Aortic Valve Bioprosthetic aortic valve is present. TAVR No aortic regurgitation is present. There is no aortic valvular stenosis. Mitral Valve The mitral valve is normal in structure. There is no mitral valve regurgitation noted. No evidence of mitral valve stenosis. Tricuspid Valve The tricuspid valve is normal in structure. There is no tricuspid valve regurgitation noted. Pulmonic Valve The pulmonary valve is normal in structure. There is no pulmonic valvular regurgitation. Great Vessels The aortic root is normal in size. IVC is normal in size and collapses >50% with inspiration. Pericardium There is no [place] [address] 2 D/M-MODE ECHOCARDIOGRAM Name: RON ABBASI [id number] Admission: 10/01/18 Attend Phys: Ivan Lord, Discharge: Date of : 39 Date of Service: 10/01/18 1529 Report #: [id number] <Conclusion> The left ventricle is normal size. There is normal left ventricular wall thickness. Left ventricular systolic function is normal. LVEF is 55-60%. Grade I - abnormal relaxation pattern. Bioprosthetic aortic valve is present. TAVR No aortic regurgitation is present. There is no aortic valvular stenosis. IVC is normal in size and collapses >50% with inspiration. <ELECTRONICALLY SIGNED> By: Ivan Lord MD, FACC 10/01/18 1529 1529 1529 Ivan Lord MD, FACC /INF
== END ==
LOC: M.CRD 09:00
DX: I35.0 Nonrheumatic aortic (valve) stenosis (principal); Z95.2 Presence of prosthetic heart valve

== ENCOUNTER 2019-05-07 15:19 | Emergency (ER) | payer OTHER ==
[~2019-05-07] VITALS: Ht 162.6 cm; Wt 79.4 kg
[2019-05-07 16:20] LABS: ABSOLUTE EOSINOPHILS 0.1 thou/uL (0.0-0.7); ABSOLUTE LYMPHOCYTES 0.7 thou/uL (0.8-5.3); ABSOLUTE MONOCYTES 0.6 thou/uL (0.0-1.2); ABSOLUTE NEUTROPHILS 3.3 thou/uL (1.6-8.1); BASOPHILS 0.9 %; EOSINOPHILS 2.6 %; HEMATOCRIT 36.4 % (42.0-52.0); HEMOGLOBIN 12.8 gm/dL (14.0-18.0); LYMPHOCYTES 15.4 %; MCH 32.1 pg (26.0-34.0); MCHC 35.2 g/dL (28.0-37.0); MCV 91.3 fL (80.0-100.0); MONOCYTES 12.4 %; MPV 6.9 fl. (7.2-11.1); NUCLEATED RBCS 0 /100WBC; PLATELET COUNT* 122 thou/uL (150-400); POLYS 68.7 %; RBC 3.99 mil/uL (4.50-6.00); RDW-CV 13.8 % (10.5-14.5); WBC 4.7 thou/uL (4.0-11.0)
[2019-05-07 16:27] LABS: CALCIUM 9.3 mg/dL (8.5-10.1); CREATININE 1.1 mg/dL (0.6-1.3); POTASSIUM 4.1 mmol/L (3.5-5.1)
[2019-05-07 16:32] LABS: ALBUMIN 3.8 g/dL (3.4-5.0); TOTAL BILIRUBIN 0.5 mg/dL (<0.1-1.0); TOTAL PROTEIN 7.5 g/dL (6.4-8.2)
[2019-05-07 17:04] LABS: URINE BILIRUBIN NEGATIVE (Negative); URINE BLOOD 3+ (Negative); URINE CLARITY SL CLOUDY; URINE COLOR RED; URINE GLUCOSE-RANDOM 1+ (Negative); URINE KETONES NEGATIVE (Negative); URINE LEUKOCYTES-REFLEX TRACE (Negative); URINE NITRITE-REFLEX NEGATIVE (Negative); URINE PROTEIN TRACE (Negative); URINE UROBILINOGEN 0.2 E.U./dl (0.2-1.0)
[2019-05-07] MEDS ORDERED: ZOFRAN ODT4 MG PO ×2 (17:07→18:17)
[2019-05-07 17:15] LABS: SQUAMOUS NONE SEEN /LPF (0-3)
[2019-05-07 17:16] LABS: URINE RBC >20 Many /HPF (0-2); URINE WBC-REFLEX 0-5 Rare /HPF (0-5)
[2019-05-07 17:17] LABS: MUCUS None Seen strn/LPF (None Seen)
[2019-05-07 17:18] LABS: CASTS None Seen /LPF (None Seen); CRYSTALS None Seen /LPF (None Seen)
[2019-05-07] MEDS ORDERED: BACTRIM DS TAB1 EACH PO (17:44)
[2019-05-07 20:12] VITALS: BP 165/79
== END 2019-05-07 20:13 | disposition home or self-care (01) ==
LOC: M.ERS 15:19
PROVIDERS: Personal Emergency Response Attendant
DX: R33.9 Retention of urine, unspecified (principal); R10.30 Lower abdominal pain, unspecified; E11.9 Type 2 diabetes mellitus without complications; I25.10 Atherosclerotic heart disease of native coronary artery without angina pectoris; I10 Essential (primary) hypertension; J44.9 Chronic obstructive pulmonary disease, unspecified; N40.0 Benign prostatic hyperplasia without lower urinary tract symptoms; Z85.46 Personal history of malignant neoplasm of prostate

== ENCOUNTER → 2019-10-22 | Outpatient (CLI) | payer MEDICARE, OTHER, MEDICAID ==
[~2019-10-22] MED LIST changes: +ZOFRAN ODT4 MG PO
--- NOTE | 2019-10-22 17:59 | CARDNUC ---
[place] [address] CARDIAC NUCLEAR IMAGING REPORT Name: RON ABBASI Room: [facility]#: [id number] Admission: 10/22/19 Attend Phys: Ivan Lord, Discharge: Date of : 39 Date of Service: 10/22/19 1758 Report #: [id number] THIS REPORT FOR: cc: Kavya Thompson Linda J. DO Liston, Michael J. MD [facility] ~ APPROVED REPORT Study performed: 10/22/2019 12:49:59 Indication: Dyspnea, Chest pain Patient Location: Out-Patient Stress Tech: Judie Mcclure Stress Nurse: Meera Lara RN Ht: 5 ft 4 in Wt: 175 lbs BSA: 1.85 m2 BMI: 30.03 Medical History Medical History: CAD s/p stent, Diabetic Noninsulin, HTN, Hyperlipidemia, Valvular heart disease Medications: atorvastatin, metoprolol,ntg,ranesa Allergies: No known drug allergies Cardiac Risk Factors: Age, Diabetes (non-insulin), HTN, Hyperlipidemia Previous Cardiac Procedures: PCI,tavr Exercise History: Sedentary Meds Held (24 hrs): metoprolol Resting Data Rest SPECT myocardial perfusion imaging was performed in supine position 30 minutes following the intravenous injection of 11.6 mCi of Tc-99m Sestamibi. Time of rest injection: 10:10 The images were gated to evaluate regional wall motion and calculate left ventricular ejection fraction. Administration Route: IV Administration Site: Right Arm Pharmacologic Stress Pharmacologic stress test was performed by injecting Regadenoson 0.4 mg IV push over 10-15 seconds immediately followed by the intravenous injection of 30.5 mCi of Tc-99m Sestamibi. Time of stress injection: 12:40 [place] [address] CARDIAC NUCLEAR IMAGING REPORT Name: RON ABBASI Room: [facility]#: [id number] Admission: 10/22/19 Attend Phys: Ivan Lord, Discharge: Date of : 39 Date of Service: 10/22/19 1758 Report #: [id number] Administration Route: IV Administration Site: Right Arm Heart Rate at time of stress injection: 100 bpm. Gated Stress SPECT was performed 40 minutes after stress injection. The images were gated to evaluate regional wall motion and calculate left ventricular ejection fraction. Prone imaging was performed. Stress Test Details Stress Test: Pharmacologic stress testing performed using 0.4 mg of regadenoson per 5 mL given IV over 10 seconds. HR Max Heart Rate (APMHR): 138 bpm Resting HR: 73 bpm Target HR (85% APMHR): 117 bpm Max HR Achieved: 100 bpm % of APMHR: 72 Recovery HR: 91 bpm BP Resting BP: 142/58 mmHg Max BP: 179/63 mmHg Recovery BP: 171/58 mmHg ECG Resting ECG: Sinus Rhythm, LBBB Stress ECG: Sinus Rhythm, LBBB ST Change: None Arrhythmia: None Recovery ECG: Sinus Rhythm, LBBB Recovery ST Change: None Recovery Arrhythmia: None Clinical Reason for Termination: Completed protocol Exercise duration: 0 min sec Exercise capacity: 1 METs The patient tolerated Lexiscan infusion without significant cardiac symptoms. Nurse Comments pt too generalized weak to walk on treadmill Stress ECG Conclusion The baseline 12-lead EKG shows sinus rhythm with left bundle-branch block. EKGs obtained during and post Lexiscan [place] [address] CARDIAC NUCLEAR IMAGING REPORT Name: RON ABBASI Room: [facility]#: [id number] Admission: 10/22/19 Attend Phys: Ivan Lord, Discharge: Date of : 39 Date of Service: 10/22/19 1758 Report #: [id number] rhythm with left bundle-branch block. There were no stress-induced arrhythmias. Study Quality Study: Good Artifact: Mild Diaphragmatic artifact Study Data At rest, the left ventricular ejection fraction was 66%.. Post stress, the left ventricular ejection was 61%.. TID = 1.14. Perfusion Perfusion images show a focal fixed defect of moderate intensity in the inferoapical region. There is a moderate region of photopenia in the inferior wall consistent with diaphragmatic attenuation artifact. Wall motion in this region is normal. No other significant fixed or reversible defects were identified. Wall Motion Global LV systolic function is normal. There is a septal wall motion abnormality consistent with underlying conduction delay. Nuclear Conclusion ECG Findings: non-diagnostic Clinical Findings: negative for ischemia Nuclear Findings: negative for ischemia Exercise Capacity: not assessed Left Ventricular Function: preserved Risk Study: low Myocardial perfusion images show no defect to suggest ischemia. Left ventricular systolic function appears preserved on gated studies. This is a low risk study. <Conclusion> The baseline 12-lead EKG shows sinus rhythm with left bundle-branch block. EKGs obtained during and post Lexiscan infusion show sinus rhythm with left bundle-branch block. There were no stress-induced arrhythmias. <ELECTRONICALLY SIGNED> By: Ivan Lord MD, FACC 10/22/19 1758 [id number] Ivan Lord MD, FACC /INF
== END ==
LOC: M.NUC 10-08 16:07 → M.CRD 09:00 → M.NUC 09:38
DX: I25.10 Atherosclerotic heart disease of native coronary artery without angina pectoris (principal)

== ENCOUNTER 2020-05-27 12:45 | Emergency (ER) | payer MEDICARE, OTHER, MEDICAID ==
[~2020-05-27] VITALS: Ht 162.6 cm; Wt 76.2 kg
[2020-05-27] MEDS ORDERED: MEDROLDOSEPACK PO (15:59)
[2020-05-27] MEDS ORDERED: CYCLOBENZAPRINE5 MG PO (15:59)
[2020-05-27 16:22] VITALS: BP 139/67
== END 2020-05-27 16:23 | disposition home or self-care (01) ==
LOC: M.ERS 12:45
DX: S39.012A Strain of muscle, fascia and tendon of lower back, initial encounter (principal); M54.41 Lumbago with sciatica, right side; E11.9 Type 2 diabetes mellitus without complications; J44.9 Chronic obstructive pulmonary disease, unspecified; I10 Essential (primary) hypertension; I25.10 Atherosclerotic heart disease of native coronary artery without angina pectoris; Z79.899 Other long term (current) drug therapy; Z79.82 Long term (current) use of aspirin; W18.39XA Other fall on same level, initial encounter; Y93.89 Activity, other specified; Y92.89 Other specified places as the place of occurrence of the external cause; Y99.8 Other external cause status

== ENCOUNTER → 2020-12-29 | Outpatient (CLI) | payer MEDICARE, OTHER, MEDICAID ==
[~2020-12-29] MED LIST changes: +CYCLOBENZAPRINE5 MG PO; +MEDROLDOSEPACK PO
--- NOTE | 2020-12-29 16:19 | CARDNUC ---
[place] [address] CARDIAC NUCLEAR IMAGING REPORT Name: RON ABBASI Room: [facility]#: [id number] Admission: 12/29/20 Attend Phys: Ivan Lord, Discharge: Date of : 39 Date of Service: 12/29/20 1619 Report #: [id number] THIS REPORT FOR: cc: Kavya Thompson Linda J. DO Liston, Michael J. MD [facility] ~ APPROVED REPORT Study performed: 12/29/2020 09:43:45 Exam: Nuclear Stress Test Indication: Chest pain Patient Location: Out-Patient Stress Tech: Judie Mcclure Stress Nurse: Meera Lara RN Ht: 5 ft 4 in Wt: 168 lbs BSA: 1.82 m2 BMI: 28.83 Medical History Medical History: CAD s/p stent, Diabetic Noninsulin, HTN, Hyperlipidemia, Valvular heart disease Medications: atorvastatin, imdur, metoprolol, ntg Allergies: No known drug allergies Cardiac Risk Factors: HTN, Hyperlipidemia, Diabetes (non-insulin), Past Smoker Previous Cardiac Procedures: PCI, TAVR Exercise History: Sedentary Meds Held (24 hrs): imdur, metoprolol Stress Test Details Stress Test: Pharmacologic stress testing performed using 0.4 mg of regadenoson per 5 mL given IV over 10 seconds. Reason for pharmacologic stress test: LBBB. HR Resting HR: 98 bpm Max Heart Rate (APMHR): 137 bpm Max HR Achieved: 113 bpm Target HR (85% APMHR): 116 bpm % of APMHR: 82 Recovery HR: 99 bpm BP Resting BP: 126/64 mmHg Max BP: 120/46 [place] [address] CARDIAC NUCLEAR IMAGING REPORT Name: RON ABBASI Room: [facility]#: [id number] Admission: 12/29/20 Attend Phys: Ivan Lord, Discharge: Date of : 39 Date of Service: 12/29/20 1619 Report #: [id number] ECG Resting ECG: Sinus Rhythm, LBBB Stress ECG: Sinus tachycardia, LBBB ST Change: None Arrhythmia: None Recovery ECG: Sinus Rhythm, LBBB Recovery ST Change: None Recovery Arrhythmia: None Clinical Reason for Termination: Completed protocol The patient tolerated Lexiscan infusion without cardiac symptoms. Stress ECG Conclusion The baseline twelve-lead EKG shows sinus rhythm with left bundle branch block. EKGs obtained during and post Lexiscan infusion show sinus rhythm and sinus tachycardia with left bundle branch block. There were no significant changes of morphology or stress-induced arrhythmias. NM EXAM: Myocardial Perfusion REST/STRESS Imaging Protocol: Rest Tc-99m/Stress Tc-99m 1 day Resting Data Rest SPECT myocardial perfusion imaging was performed in supine position 30 minutes following the intravenous injection of 9.9 mCi of Tc-99m Sestamibi. Time of rest injection: 08:15 The images were gated to evaluate regional wall motion and calculate left ventricular ejection fraction. Administration Route: IV Administration Site: Right Arm Pharmacologic Stress Pharmacologic stress test was performed by injecting Regadenoson 0.4 mg IV push followed by the intravenous injection of 30.5 mCi of Tc-99m Sestamibi. Time of stress injection: 09:55 Administration Route: IV Administration Site: Right Arm Heart Rate at time of stress injection: 113 bpm. Gated Stress SPECT was performed 40 minutes after stress injection. The images were gated to evaluate regional [place] [address] CARDIAC NUCLEAR IMAGING REPORT Name: RON ABBASI Room: [facility]#: [id number] Admission: 12/29/20 Attend Phys: Ivan Lord, Discharge: Date of : 39 Date of Service: 12/29/20 1619 Report #: [id number] left ventricular ejection fraction. Prone imaging was performed. Study Quality Study: Good Artifact: Mild Diaphragmatic artifact Study Data At rest, the left ventricular ejection fraction was 66%.. Post stress, the left ventricular ejection was 73%.. TID = 1.04. Perfusion Perfusion images obtained in the supine position at rest and post Lexiscan stress show mild photopenia in the inferior wall that resolves with post-rest prone imaging suggesting diaphragmatic attenuation artifact. There were no other significant fixed or reversible defects. Wall Motion Global LV systolic function is normal. There is septal wall motion abnormality noted consistent with underlying bundle branch block. Nuclear Conclusion ECG Findings: non-diagnostic Clinical Findings: negative for ischemia Nuclear Findings: negative for ischemia Exercise Capacity: not assessed Left Ventricular Function: Preserved Risk Study: low Perfusion images show no defect to suggest infarct or ischemia. Left ventricular systolic function is well preserved. This is a low risk study. <Conclusion> The baseline twelve-lead EKG shows sinus rhythm with left bundle branch block. EKGs obtained during and post Lexiscan infusion show sinus rhythm and sinus tachycardia with left bundle branch block. There were no significant changes of morphology or stress-induced arrhythmias. <ELECTRONICALLY SIGNED> By: Ivan Lord MD, FACC 12/29/20 1619 1619 1619 Ivan Lord MD, FACC /INF
== END ==
LOC: M.NUC 12-17 13:09
PROVIDERS: ATTEND Internal Medicine Cardiovascular Disease
DX: I25.119 Atherosclerotic heart disease of native coronary artery with unspecified angina pectoris (principal); R00.0 Tachycardia, unspecified

== ENCOUNTER 2021-03-05 17:30 | Emergency (ER) | payer MEDICARE, MEDICAID ==
[~2021-03-05] VITALS: Ht 162.6 cm; Wt 74.8 kg
[2021-03-05] MEDS ORDERED: CIPROFLOXIN HC2.5 M1 OPHTHALMIC (17:57)
[2021-03-05] MEDS ORDERED: PERCOCET PO (18:06)
[2021-03-05 18:20] VITALS: BP 150/54
== END 2021-03-05 18:21 | disposition home or self-care (01) ==
LOC: M.ERS 17:30
DX: H10.9 Unspecified conjunctivitis (principal); G89.3 Neoplasm related pain (acute) (chronic); C61 Malignant neoplasm of prostate; E11.9 Type 2 diabetes mellitus without complications; J44.9 Chronic obstructive pulmonary disease, unspecified; I10 Essential (primary) hypertension; Z95.5 Presence of coronary angioplasty implant and graft; Z79.899 Other long term (current) drug therapy; Z79.82 Long term (current) use of aspirin